=== PATIENT | female | born 1935 | race Two or more races ===

== ENCOUNTER → 2017-03-14 | Outpatient (CLI) | payer OTHER, MEDICAID ==
[~2017-03-14] MED LIST: ACETAMINOPHEN 325 MG TAB PO ONE; LOSARTAN POTASSIUM 50 MG TAB PO ONE
[2017-03-14 19:14] VITALS: BP 197/89
== END ==
LOC: FOBOP 11:34
PROVIDERS: ATTEND Internal Medicine Hematology & Oncology
PROC: 30233N1 Transfusion of Nonautologous Red Blood Cells into Peripheral Vein, Percutaneous Approach (ICD-10-PCS; principal; 2017-03-14)
DX: D64.9 Anemia, unspecified (principal)
CPT/HCPCS: 36430; J1200; P9016; P9021